=== PATIENT | female | born 1970 ===

== ENCOUNTER 2022-08-08 07:23 | Day surgery (SDC) | payer OTHER ==
[~2022-08-08] VITALS: Ht 162.6 cm; Wt 68.0 kg
[~2022-08-08 07:23] MED LIST: LIPITOR20 MG PO; LOSARTAN POTASS50 MG PO; TRICOR145 MG PO
== END 2022-08-08 13:55 | disposition home or self-care (01) ==
LOC: CIR.AMB 07:23
PROVIDERS: ATTEND Specialist
DX: N85.02 Endometrial intraepithelial neoplasia [EIN] (principal); N72 Inflammatory disease of cervix uteri; I10 Essential (primary) hypertension; Z20.822 Contact with and (suspected) exposure to COVID-19